=== PATIENT | male | born 1935 | race Caucasian/White ===

== ENCOUNTER 2024-02-16 16:18 | Inpatient (IN) | payer MEDICARE, SELFPAY ==
[2024-02-16] VITALS (11 sets, daily range): BP systolic 112–146; BP diastolic 50–96; PULSE 69–119; RESP 18–34; TEMP 37.2–37.7; O2SAT 93–96
--- NOTE | ~2024-02-16 | MR_ITS ---
EXAMINATION: MR brain/brain stem wo con DATE: 02/18/2024 14:22 INDICATION: Confusion. TECHNIQUE: Magnetic resonance imaging (MRI) of the brain and brainstem was performed without intraven ous contrast. COMPARISON: Head CT 02/16/2024 FINDINGS: There is diffuse brain volume loss. There are scattered areas of nonspecific increased T2-w eighted signal intensity in the cerebral white matter. There is no intracranial hemorrhage, acute inf arction, or abnormal intracranial mass lesion. The ventricles are normal in size. There are small gabriel ateral mastoid effusions. There are likely changes of ocular lens replacement surgeries. There is mil d mucosal thickening in the ethmoid sinuses. IMPRESSION: 1. Moderate nonspecific cerebral white matter disease, which likely represents chronic small vessel i schemic disease. Reviewed, dictated and finalized at location E. IMPRESSION: 1. Moderate nonspecific cerebral white matter disease, which likely represents chronic small vessel ischemic disease.
--- NOTE | ~2024-02-16 | CT_ITS ---
CT brain wo con Ordering provider: Dahlia Cee PA-C History: 88 years Male with . altered mental status . Comparison: None. Technique: CT of the head without contrast. Radiation reduction technique utilized. DLP is 756.67 mGy . FINDINGS: BRAIN PARENCHYMA AND CSF SPACES: Brain atrophy with deep white matter ischemic changes and ventricula r dilatation. No midline shift, mass effect or hemorrhage. The brain parenchyma and CSF spaces are o therwise normal. VISUALIZED PARANASAL SINUSES: Well aerated. MASTOIDS: Well aerated. BONES: The bones appear intact. SOFT TISSUES: Visualized nasopharynx is normal. Superficial soft tissues are normal. IMPRESSION: No acute intracranial findings. Reviewed, dictated and finalized at location A.
--- NOTE | ~2024-02-16 | XR_ITS ---
XR chest 2V Ordering provider: Olman Burger MD History: 88 years Male with . cough . Comparison: None. FINDINGS: MEDIASTINUM: The cardiac silhouette is not enlarged. LUNGS: No pneumothorax. Consolidation in the right lung base suggestive of pneumonia. Minimal opacifi cation and the left lung base medially. Effusions in the posterior costophrenic angle on the right si de. OTHER: No free air under the diaphragm. IMPRESSION: Bibasilar pneumonia more on the right side. Reviewed, dictated and finalized at location A.
--- NOTE | 2024-02-16 16:31 | ECG_ITS ---
Test Date: 2024-02-16 16:26:02 Measurements Intervals [place] Rate: 109 P: 49 MN: 162 QRS: 18 QRSD: 100 T: 72 QT: 292 QTc: 394 Interpretive Statements SINUS TACHYCARDIA LOW QRS VOLTAGE IN EXTREMITY LEADS [QRS DEFLECTION < 0.5 mV IN LIMB LEADS] NONSPECIFIC ST & T-WAVE ABNORMALITY ABNORMAL ECG No previous ECG available for comparison Electronically Signed On 02-17-2024 11:30:28 CDT by Hayden Cunningham M.D.
--- NOTE | 2024-02-16 16:37 | ED.AMS ---
HPI - Altered Mental Status General Chief Complaint: Altered Mental Status Stated Complaint: ams Time Seen by Provider: 02/16/24 16:25 History of Present Illness HPI narrative: Patient is an 88-year-old male who presents ER from home with reports of increased confusion. Patient is awake alert and follows commands but has a difficult time communicating. He does knows name. No reports of discomfort. He endorses frequent cough. Otherwise history is limited. Temperature is slightly elevated 99.9? F. Related Data Home Medications Medication Instructions Recorded Confirmed allopurinol 100 mg tablet 100 mg PO BID 12/13/20 12/17/23 amlodipine 5 mg tablet 5 mg PO DAILY 12/13/20 12/17/23 apixaban 5 mg tablet (Eliquis) 5 mg PO ONCE 12/13/20 12/17/23 ergocalciferol (vitamin D2) 1,250 1,250 mcg PO MONTHLY 12/13/20 12/17/23 mcg (50,000 unit) capsule famotidine 20 mg tablet 20 mg PO DAILY 12/13/20 12/17/23 finasteride 5 mg tablet 5 mg PO DAILY 12/13/20 12/17/23 ipratropium 0.5 mg-albuterol 3 mg 3 ml inhalation QID PRN 12/13/20 12/17/23 (2.5 mg base)/3 mL nebulization soln lisinopril 5 mg tablet 5 mg PO DAILY 12/13/20 12/17/23 simvastatin 20 mg tablet 20 mg PO DAILY 12/13/20 12/17/23 tamsulosin 0.4 mg capsule 0.4 mg PO DAILY 12/13/20 12/17/23 umeclidinium 62.5 mcg/actuation 1 inh inhalation DAILY 12/13/20 12/17/23 blister powder for inhalation (Incruse Ellipta) metoprolol tartrate 25 mg tablet 25 mg PO BID 03/19/23 12/17/23 oxybutynin chloride 5 mg tablet 10 mg PO DAILY 03/19/23 12/17/23 ferrous gluconate 324 mg (37.5 mg 324 mg PO DAILY 11/12/23 12/17/23 iron) tablet hydrocodone 5 mg-acetaminophen 325 1 tablet PO Q6H PRN 11/12/23 12/17/23 mg tablet Allergies Allergy/AdvReac Type Severity Reaction Status Date / Time No Known Allergies Allergy Verified 12/17/23 13:10 Review of Systems Review of Systems: ROS unobtainable: Yes unobtainable due to mental status PMFSH Past Medical History Medical History COPD (chronic obstructive pulmonary disease) Heart disease Surgical History Surgical History History of back surgery Family History Family History Father Hypertension Mother Hypertension Social History Social History (Updated 11/12/23 @ 13:37 by Belkys Morejon CMA) Smoking status: Never smoker Alcohol intake: never Substance use type: does not use Do You Feel Safe in your Home?: Yes Lack of Transportation: No Lack of Food: Never True Current Housing: I Have Housing Concerned About Future Housing: No Difficulty Paying Gas/Electric Bills: No Difficulty Paying for Meds: No Currently Unemployed: No Education: Grade School Difficulty w/ Childcare or Family Care: No Living arrangements: with family Occupation/Education: retired Exam Narrative: GENERAL: chronically ill-appearing, well-nourished, and in no acute distress. HEAD: Normocephalic, atraumatic. ENT: Mucous membranes moist. NECK: Supple. CHEST: Clear to auscultation. No respiratory distress. HEART: Tachycardic. Normal peripheral pulses. ABDOMEN: Soft, nontender, nondistended. EXTREMITIES: Normal range of motion. No edema. SKIN: Warm, dry, no rash. NEURO: Alert and oriented x1. PSYCH: Normal mood and affect. Course Course Emergency Course: patient's family at bedside. They report he has not been eating and drinking. He will be admitted to the hospitalist service. IV antibiotics ordered. Vital Signs Vital signs: Vital Signs Temperature 99.9 F H 02/16/24 16:27 Pulse Rate 110 H 02/16/24 16:27 Respiratory Rate 18 02/16/24 16:27 Blood Pressure 138/70 02/16/24 16:27 Pulse Oximetry 96 02/16/24 16:27 Temperature 99.9 F H 02/16/24 16:27 Pulse Rate 110 H 02/16/24 17:10 Respiratory Rate 27 H
[2024-02-16 16:52] LABS: Basophils Absolute Auto 0.1 K/mm3 (0.0-0.1); Basophils Percent Auto 0.3 % (0.2-1.2); Eosinophils Absolute Auto 0.1 K/mm3 (0-0.3); Eosinophils Percent Auto 0.6 % (0-4.4); Hematocrit 42.8 % (42.0-52.0); Hemoglobin 14.1 g/dL (14.0-18.0); Immature Granulocyte Absolute 0.06 K/mm3 (0.00-0.031); Immature Granulocyte Percent A 0.4 % (0-0.5); Lymphocytes Absolute Auto 1.96 K/mm3 (0.9-3.2); Mean Corpuscular HGB Conc 32.9 g/dl (32-36); Mean Corpuscular Hemoglobin 30.4 pg (26-34); Mean Corpuscular Volume 92.2 fl (80-100); Mean Platelet Volume 9.1 fl (7.4-10.4); Monocytes Absolute Auto 0.9 K/mm3 (0.1-0.6); Monocytes Percent Auto 5.9 % (2.6-8.5); Neutrophils Absolute Auto 12.1 K/mm3 (1.3-6.7); Neutrophils Percent Auto 79.8 % (45.5-73.1); Platelet Count Result 211 k/mm3 (150-375); Red Blood Count 4.64 M/mm3 (4.6-6.20); Red Cell Distribution Width 14.9 % (11.5-14.5); White Blood Count 15.1 K/mm3 (4.5-10.0)
[2024-02-16 17:04] LABS: Alanine Aminotransferase 12 U/L (6-50); Albumin Level 4.4 g/dL (3.5-5.1); Alkaline Phosphatase 90 U/L (38-126); Anion Gap 11 mmol/L (4-12); Aspartate Amino Transferase 19 U/L (17-59); Bilirubin,Total 1.3 mg/dL (0.2-1.3); Blood Urea Nitrogen 55 mg/dL (9-20); Calcium 10.8 mg/dL (8.4-10.2); Carbon Dioxide 22 mmol/L (22-30); Chloride 107 mmol/L (98-107); Estimated CRCL calculation 15 ml/min; Estimated Glomerular Filt Rate 21; Glucose 171 mg/dL (65-110); Potassium 5.6 mmol/L (3.4-5.0); Sodium 140 mmol/L (137-145)
[2024-02-16] MEDS: SODIUM CHLORIDE 0.9% IV 1,000 ML 999 ML IV CONT ×2 (17:10→18:53)
[2024-02-16 17:15] LABS: Troponin I 0.014 ng/mL (0.000-0.034)
[2024-02-16 17:27] LABS: Appearance Urine Clear (Clear); Bacteria Urine None Seen /hpf; Bilirubin Urine Negative (Negative); Blood Urine 1+ (Negative); Color Urine Yellow (Yellow); Glucose Urine UA Negative (Negative); Ketones Urine Negative (Negative); Leukocyte Esterase Ur Negative LEU/UL (Negative); Need Manual Microscopic Reviewed; Nitrate Urine Negative (Negative); Non Pathogenic Casts 0-2; Protein Urine 1+ mg/dL (Negative); Specific Grav Ur 1.017 (1.001-1.035); Squamous Epithelial Cell Urine None Seen /hpf (Few); Urobilinogen Urine 0.2 mg/dL (<2.0); WBC Urine 0-5 /hpf (0-3)
[2024-02-16 17:28] LABS: Add Urine Microscopic? YES
[2024-02-16 17:29] LABS: INR 1.4
[2024-02-16 17:30] LABS: Partial Thromboplastin Time 53.4 Seconds (22.3-36.8)
[2024-02-16 18:17] LABS: Influenza A QL RT-PCR Negative (Negative); Influenza B QL RT-PCR Negative (Negative); RSV RNA, RT-PCR Negative (Negative); SARS-CoV-2 RNA PCR Negative (Negative)
--- NOTE | 2024-02-16 19:20 | PM.IMHP ---
H&P: HPI History of Present Illness Date/Time: 02/16/24 20:15 Chief Complaint: Altered mental status. Narrative: This is an 88-year-old male with hypertension, hyperlipidemia, benign prostatic hyperplasia, gastroesophageal reflux disease, anemia, chronic obstructive pulmonary disease, obstructive sleep apnea, and chronic anticoagulation who presented to the emergency department via EMS from home for evaluation of altered mental status. He provides the majority the following history. At baseline the patient is typically alert and able to hold conversations. Over the past 24 hours he has become increasingly confused and agitated. On arrival to triage he complained of ?pain all over? of which he could not qualify. Son indicates that he had spinal surgery about 10 years ago and he has become progressively more debilitated the point where he no longer walks. He indicates that the patient has poor quality of life and tells his family that he wishes to . He has been refusing meals and will only drink chocolate milk. They have not noticed that he has issues swallowing and have not witnessed any episodes of dysphagia. There are no reports of fever, cough, vomiting, or diarrhea. In the ED: Temperature was 99.9? F on arrival. He has been tachycardic and tachypneic. Blood pressures are stable in the 140s systolic. Labs were significant for a WBC count of 50.1, hemoglobin 14.1, INR 1.4, potassium 5.6, BUN 55, creatinine 2.80, glucose 171, calcium 10.8. He tested negative for influenza, RSV, and COVID. Chest x-ray showed bibasilar pneumonia, more on the right side. He was given a 2 L normal saline bolus, 1 g ceftriaxone, and 500 mg azithromycin and he is being admitted in this setting for further treatment and evaluation. Review of Systems Review of Systems: Unable to obtain accurately given his confusion. [facility] Past Medical History Medical History Benign prostatic hyperplasia Chronic anticoagulation Chronic obstructive pulmonary disease Gastroesophageal reflux disease Gout Heart disease Hypertension Iron deficiency anemia Surgical History Surgical History History of back surgery Family History Family History Father Hypertension Mother Hypertension Social History Social History (Updated 02/16/24 @ 23:08 by Dahlia Cee PA-C) Social History: Surrogate medical decision maker: Myah (spouse) and Fidencio (son) Artis. Code status: Do not resuscitate. Smoking packs per day: 2 Smoking cigarettes per day: 40.0 Years smoked: 40 Smoking pack-years: 80.00 Smoking status: Former smoker Tobacco type: cigarettes Alcohol intake: never Substance use: never Substance use type: does not use Do You Feel Safe in your Home?: Yes Lack of Transportation: No Lack of Food: Never True Current Housing: I Have Housing Concerned About Future Housing: No Difficulty Paying Gas/Electric Bills: No Difficulty Paying for Meds: No Currently Unemployed: No Education: Grade School Difficulty w/ Childcare or Family Care: No Living arrangements: with family Occupation/Education: retired Spiritual care concerns: No Meds Home Medications and Allergies Home Medications Medication Instructions Recorded Confirmed Type allopurinol 100 mg tablet 100 mg PO BID 12/13/20 12/17/23 History amlodipine 5 mg tablet 5 mg PO DAILY 12/13/20 12/17/23 History apixaban 5 mg tablet (Eliquis) 5 mg PO ONCE 12/13/20 12/17/23 History ergocalciferol (vitamin D2) 1,250 1,250 mcg PO MONTHLY 12/13/20 12/17/23 History mcg (50,000 unit) capsule famotidine 20 mg tablet 20 mg PO DAILY 12/13/20 12/17/23 History finasteride 5 mg tablet 5 mg PO DAILY 12/13/20 12/17/23 History ipratropium 0.5 mg-albuterol 3 mg 3 ml inhalation QID PRN 12/13/20 12/17/23 His
--- NOTE | 2024-02-16 20:05 | ADMGEN ---
This patient, Austin Wisdom, was admitted to Medical Room 348-01. Patient/family oriented to hospital policies and general routines including ID bracelet, bed and alarms, visiting hours, pain management, procedures, bathroom and other care routines, personal items, smoking policy, room service/diet, and visiting hours. Information on how to activate the Rapid Response Team has been discussed. Patient/Family are encouraged to report perceived risks to care and to ask questions if they do not understand what they are told or what they should do.
[2024-02-16 20:14] LABS: Ammonia < 9 umol/L (9-30); Anion Gap 9 mmol/L (4-12); Blood Urea Nitrogen 47 mg/dL (9-20); Calcium 9.6 mg/dL (8.4-10.2); Carbon Dioxide 19 mmol/L (22-30); Chloride 114 mmol/L (98-107); Estimated CRCL calculation 17 ml/min; Estimated Glomerular Filt Rate 23; Glucose 151 mg/dL (65-110); Potassium 4.9 mmol/L (3.4-5.0); Sodium 142 mmol/L (137-145)
[2024-02-16 20:17] LABS: Hemoglobin A1C 5.4 % (<5.7)
[2024-02-16 20:26] LABS: Troponin I 0.023 ng/mL (0.000-0.034)
[2024-02-16 20:46] LABS: Thyroid Stimulating Hormone Reflex 0.364 uIU/mL (0.465-4.68)
[2024-02-16] MEDS: SODIUM CHLORIDE 0.9% IV 1,000 ML 75 ML IV CONT (21:31)
[2024-02-16] MEDS: AZITHROMYCIN 500 MG/NS 250 ML 500 MG/250 ML BAG 250 MG IVPB (21:32)
[2024-02-16 21:37] LABS: Free T4 Free Thyroxine Reflex 1.28 ng/dL (0.78-2.19)
[2024-02-16 23:11] LABS: Total Triiodothyronine (T3) 1.15 NG/ML (0.97-1.69)
[2024-02-16 23:38] LABS: Reflex Lactic Acid Yes or No Add Lactic
[2024-02-17] VITALS (14 sets, daily range): BP systolic 117–130; BP diastolic 33–45; PULSE 59–99; RESP 16–18; TEMP 36.2–37.1; O2SAT 91–96; BMI 20.7
[2024-02-17 00:16] LABS: Lactic Acid 0.8 mmol/L (0.7-2.0)
[2024-02-17] MEDS: IPRATROPIUM 0.5 MG/ALBUTEROL SULFATE 2.5 MG AMPUL.NEB 3 ML INHALATION ×4 (02:12→20:31)
[2024-02-17] MEDS: LACTATED RINGERS 1,000 ML 75 ML IV CONT ×2 (03:35→17:01)
[2024-02-17 07:38] LABS: Basophils Percent Auto 0.3 % (0.2-1.2); Eosinophils Absolute Auto 0.2 K/mm3 (0-0.3); Eosinophils Percent Auto 1.8 % (0-4.4); Hematocrit 33.7 % (42.0-52.0); Immature Granulocyte Absolute 0.05 K/mm3 (0.00-0.031); Immature Granulocyte Percent A 0.5 % (0-0.5); Lymphocytes Absolute Auto 1.58 K/mm3 (0.9-3.2); Mean Corpuscular HGB Conc 32.6 g/dl (32-36); Mean Corpuscular Hemoglobin 30.2 pg (26-34); Mean Corpuscular Volume 92.6 fl (80-100); Mean Platelet Volume 9.2 fl (7.4-10.4); Monocytes Absolute Auto 0.8 K/mm3 (0.1-0.6); Monocytes Percent Auto 8.1 % (2.6-8.5); Neutrophils Absolute Auto 6.7 K/mm3 (1.3-6.7); Neutrophils Percent Auto 72.3 % (45.5-73.1); Platelet Count Result 159 k/mm3 (150-375); Red Blood Count 3.64 M/mm3 (4.6-6.20); Red Cell Distribution Width 14.8 % (11.5-14.5); White Blood Count 9.3 K/mm3 (4.5-10.0)
[2024-02-17 07:51] LABS: Anion Gap 6 mmol/L (4-12); Blood Urea Nitrogen 43 mg/dL (9-20); Calcium 9.4 mg/dL (8.4-10.2); Carbon Dioxide 20 mmol/L (22-30); Chloride 115 mmol/L (98-107); Estimated CRCL calculation 17 ml/min; Estimated Glomerular Filt Rate 27; Glucose 101 mg/dL (65-110); Magnesium 1.9 mg/dL (1.6-2.3); Potassium 4.2 mmol/L (3.4-5.0); Sodium 141 mmol/L (137-145)
[2024-02-17 08:38] LABS: Amphetamine Screen Urine Negative (Negative); Barbiturate Screen Urine Negative (Negative); Benzodiazepines Screen Urine Negative (Negative); Cannabinoid Screen Urine Negative (Negative); Cocaine Screen Urine Negative (Negative); Methadone Screen Urine Negative (Negative); Opiate Screen Urine Negative (Negative); Phencyclidine Screen Urine Negative (Negative)
--- NOTE | 2024-02-17 10:43 | PCSTNOTE ---
Please refer to the Bedside Swallow Evaluation in the EMR. Please note, silent aspiration cannot be ruled out at bedside.
--- NOTE | 2024-02-17 12:31 | PM.IMPN ---
Progress Note: A&P Assessment and Plan (1) Sepsis: Code(s): A41.9 - Sepsis, unspecified organism Status: Acute (2) Pneumonia: Code(s): J18.9 - Pneumonia, unspecified organism Status: Acute (3) Acute kidney injury: Code(s): N17.9 - Acute kidney failure, unspecified Status: Acute (4) Altered mental status: Code(s): R41.82 - Altered mental status, unspecified Status: Acute (5) Hyperkalemia: Code(s): E87.5 - Hyperkalemia Status: Acute (6) Chronic anticoagulation: Code(s): Z79.01 - ad terminal makeup operator (current) use of anticoagulants Status: Acute (7) Hypertension: Code(s): I10 - Essential (primary) hypertension Status: Acute (8) Chronic obstructive pulmonary disease: Code(s): J44.9 - Chronic obstructive pulmonary disease, unspecified Status: Acute (9) Benign prostatic hyperplasia: Code(s): N40.0 - Benign prostatic hyperplasia without lower urinary tract symptoms Status: Acute (10) Gastroesophageal reflux disease: Code(s): K21.9 - Gastro-esophageal reflux disease without esophagitis Status: Acute (11) Iron deficiency anemia: Code(s): D50.9 - Iron deficiency anemia, unspecified Status: Acute Plan This is an 88-year-old male with hypertension, hyperlipidemia, benign prostatic hyperplasia, gastroesophageal reflux disease, anemia, chronic obstructive pulmonary disease, obstructive sleep apnea, and chronic anticoagulation who presented to the emergency department via EMS from home for evaluation of altered mental status. At baseline the patient is typically alert and able to hold conversations. Over the past 24 hours he has become increasingly confused and agitated. On arrival to triage he complained of ?pain all over? of which he could not qualify. Son indicates that he had spinal surgery about 10 years ago and he has become progressively more debilitated the point where he no longer walks. He indicates that the patient has poor quality of life and tells his family that he wishes to . He has been refusing meals and will only drink chocolate milk. They have not noticed that he has issues swallowing and have not witnessed any episodes of dysphagia. There are no reports of fever, cough, vomiting, or diarrhea. In the ED: Temperature was 99.9? F on arrival. He has been tachycardic and tachypneic. Blood pressures are stable in the 140s systolic. Labs were significant for a WBC count of 15k, hemoglobin 14.1, INR 1.4, potassium 5.6, BUN 55, creatinine 2.80, glucose 171, calcium 10.8. He tested negative for influenza, RSV, and COVID. Chest x-ray showed bibasilar pneumonia, more on the right side. He was given a 2 L normal saline bolus, 1 g ceftriaxone, and 500 mg azithromycin and he is being admitted in this setting for further treatment and evaluation. Sepsis with low-grade fever tachycardia tachypnea leukocytosis and elevated lactic acid level source pneumonia. On ceftriaxone azithromycin. Follow cultures. Urine antigens. Acute kidney injury creatinine 2.8 continue to improve hold lisinopril check CK level Hyperkalemia resolved Long-term anticoagulant use on apixaban unclear etiology Altered mental status improved TSH mildly low with normal free T3 and T4. Ammonia less than 9 LFTs normal lactic acid has normalized. CT head is negative. Will get MRI brain DVT prophylaxis on apixaban Will restart with lowered to 2.5 b.i.d. due to renal function He is on multiple different medications at home at the supposed to but has not been taking it for a while. Subjective Date/time seen: 02/17/24 12:31 Interval history: No overnight events. Looks better feels better more alert and conversant today, still has some speech problem Review of Systems Review of Systems: All systems reviewed & are unremarkable except as noted in HPI and below Exam Narrative: General: Chronically ill-appearing male supine in bed, not i
[2024-02-17 15:53] LABS: Creatine Kinase 87 U/L (55-170)
[2024-02-17] MEDS: allopurinoL 100 MG TABLET PO (17:02)
[2024-02-17] MEDS: AZITHROMYCIN 500 MG/NS 250 ML 500 MG/250 ML BAG 250 MG IVPB (17:02)
[2024-02-17] MEDS: METOPROLOL TARTRATE 25 MG TABLET PO (20:46)
[2024-02-17] MEDS: guaiFENesin 12 HR 600 MG TABCR PO (20:46)
[2024-02-17] MEDS: APIXABAN 2.5 MG TABLET PO (20:46)
[2024-02-18] VITALS (22 sets, daily range): BP systolic 108–131; BP diastolic 42–58; PULSE 70–151; RESP 16–18; TEMP 36.4–37.2; O2SAT 90–94
[2024-02-18] MEDS: IPRATROPIUM 0.5 MG/ALBUTEROL SULFATE 2.5 MG AMPUL.NEB 3 ML INHALATION ×4 (01:32→19:31)
[2024-02-18 06:03] LABS: Basophils Percent Auto 0.2 % (0.2-1.2); Eosinophils Absolute Auto 0.2 K/mm3 (0-0.3); Eosinophils Percent Auto 1.9 % (0-4.4); Hematocrit 31.5 % (42.0-52.0); Hemoglobin 10.2 g/dL (14.0-18.0); Immature Granulocyte Absolute 0.04 K/mm3 (0.00-0.031); Immature Granulocyte Percent A 0.5 % (0-0.5); Lymphocytes Absolute Auto 1.28 K/mm3 (0.9-3.2); Lymphocytes Percent Auto 15.8 % (18.3-44.2); Mean Corpuscular HGB Conc 32.4 g/dl (32-36); Mean Corpuscular Hemoglobin 30.5 pg (26-34); Mean Corpuscular Volume 94.3 fl (80-100); Mean Platelet Volume 9.3 fl (7.4-10.4); Monocytes Absolute Auto 0.7 K/mm3 (0.1-0.6); Neutrophils Percent Auto 73.6 % (45.5-73.1); Platelet Count Result 136 k/mm3 (150-375); Red Blood Count 3.34 M/mm3 (4.6-6.20); Red Cell Distribution Width 14.7 % (11.5-14.5); White Blood Count 8.1 K/mm3 (4.5-10.0)
[2024-02-18 06:19] LABS: Alanine Aminotransferase 9 U/L (6-50); Alkaline Phosphatase 66 U/L (38-126); Anion Gap 2 mmol/L (4-12); Aspartate Amino Transferase 19 U/L (17-59); Bilirubin,Total 0.6 mg/dL (0.2-1.3); Blood Urea Nitrogen 33 mg/dL (9-20); Calcium 9.2 mg/dL (8.4-10.2); Carbon Dioxide 24 mmol/L (22-30); Chloride 112 mmol/L (98-107); Estimated CRCL calculation 19 ml/min; Estimated Glomerular Filt Rate 32; Glucose 95 mg/dL (65-110); Magnesium 1.7 mg/dL (1.6-2.3); Potassium 4.3 mmol/L (3.4-5.0); Sodium 138 mmol/L (137-145)
--- NOTE | 2024-02-18 08:42 | ECG_ITS ---
Test Date: 2024-02-18 09:00:30 Measurements Intervals [place] Rate: 151 P: 0 MS: 0 QRS: 28 QRSD: 94 T: 0 QT: 247 QTc: 392 Interpretive Statements ATRIAL FIBRILLATION WITH RAPID VENTRICULAR RESPONSE MARKED ST DEPRESSION, CONSIDER SUBENDOCARDIAL INJURY [0.2+ mV ST DEPRESSION] Compared to ECG 02/16/2024 16:26:02 ATRIAL FIBRILLATION WITH RVR NOW PRESENT Electronically Signed On 02-18-2024 12:11:27 CDT by Dez Oneal M.D.
[2024-02-18] MEDS: oxyBUTYnin CHLORIDE 5 MG TABLET 10 MG PO (08:51)
[2024-02-18] MEDS: amLODIPine BESYLATE 5 MG TABLET PO (08:51)
[2024-02-18] MEDS: METOPROLOL TARTRATE INJ 5 MG/5 ML VIAL IV PUSH (08:52)
[2024-02-18] MEDS: APIXABAN 2.5 MG TABLET PO ×2 (08:53→20:36)
[2024-02-18] MEDS: FAMOTIDINE 20 MG TABLET PO (08:53)
[2024-02-18] MEDS: FINASTERIDE 5 MG TABLET PO (08:53)
[2024-02-18] MEDS: allopurinoL 100 MG TABLET PO (08:53)
[2024-02-18] MEDS: guaiFENesin 12 HR 600 MG TABCR PO ×2 (08:53→20:35)
[2024-02-18] MEDS: SIMVASTATIN 20 MG TABLET PO (08:53)
[2024-02-18] MEDS: LACTATED RINGERS 1,000 ML 75 ML IV CONT (09:04)
[2024-02-18] MEDS: FERROUS GLUCONATE 324 MG TABLET PO (09:11)
[2024-02-18] MEDS: MAGNESIUM SULF 1 GM/D5W 100 ML 1 GM/100 ML BAG IVPB (09:37)
[2024-02-18] MEDS: METOPROLOL TARTRATE 25 MG TABLET PO ×2 (10:06→20:36)
--- NOTE | 2024-02-18 12:49 | P.CDI_ITS ---
CDI Query Clarification Request BMI 21.6 Nutritional Diagnostic Statement: Severe protein calorie malnutrition related to chronic loss of appetite as evidenced by intakes <50% needs >1 month; severe muscle wasting (temporalis, clavicles, shoulders, calf muscles) and severe fat loss (buccal fat pads, ribs) Please refer to the comprehensive nutrition assessment for further information. If you agree with the diagnosis of protein calorie malnutrition, please add to the problem list including the severity: * Mild * Moderate * Severe * Other/Unknown <LANA Luz - Last Filed: 02/18/24 12:52> Provider Comments severe protein calorie malnutrition <Todd Steele MD - Last Filed: 02/28/24 07:36>
--- NOTE | 2024-02-18 13:43 | PM.IMPN ---
Progress Note: A&P Assessment and Plan (1) Sepsis: Code(s): A41.9 - Sepsis, unspecified organism Status: Acute (2) Pneumonia: Code(s): J18.9 - Pneumonia, unspecified organism Status: Acute (3) Acute kidney injury: Code(s): N17.9 - Acute kidney failure, unspecified Status: Acute (4) Altered mental status: Code(s): R41.82 - Altered mental status, unspecified Status: Acute (5) Hyperkalemia: Code(s): E87.5 - Hyperkalemia Status: Acute (6) Chronic anticoagulation: Code(s): Z79.01 - half-way (current) use of anticoagulants Status: Acute (7) Hypertension: Code(s): I10 - Essential (primary) hypertension Status: Acute (8) Chronic obstructive pulmonary disease: Code(s): J44.9 - Chronic obstructive pulmonary disease, unspecified Status: Acute (9) Benign prostatic hyperplasia: Code(s): N40.0 - Benign prostatic hyperplasia without lower urinary tract symptoms Status: Acute (10) Gastroesophageal reflux disease: Code(s): K21.9 - Gastro-esophageal reflux disease without esophagitis Status: Acute (11) Iron deficiency anemia: Code(s): D50.9 - Iron deficiency anemia, unspecified Status: Acute Plan This is an 88-year-old male with hypertension, hyperlipidemia, benign prostatic hyperplasia, gastroesophageal reflux disease, anemia, chronic obstructive pulmonary disease, obstructive sleep apnea, and chronic anticoagulation who presented to the emergency department via EMS from home for evaluation of altered mental status. At baseline the patient is typically alert and able to hold conversations. Over the past 24 hours he has become increasingly confused and agitated. On arrival to triage he complained of ?pain all over? of which he could not qualify. Son indicates that he had spinal surgery about 10 years ago and he has become progressively more debilitated the point where he no longer walks. He indicates that the patient has poor quality of life and tells his family that he wishes to . He has been refusing meals and will only drink chocolate milk. They have not noticed that he has issues swallowing and have not witnessed any episodes of dysphagia. There are no reports of fever, cough, vomiting, or diarrhea. In the ED: Temperature was 99.9? F on arrival. He has been tachycardic and tachypneic. Blood pressures are stable in the 140s systolic. Labs were significant for a WBC count of 15k, hemoglobin 14.1, INR 1.4, potassium 5.6, BUN 55, creatinine 2.80, glucose 171, calcium 10.8. He tested negative for influenza, RSV, and COVID. Chest x-ray showed bibasilar pneumonia, more on the right side. He was given a 2 L normal saline bolus, 1 g ceftriaxone, and 500 mg azithromycin and he is being admitted in this setting for further treatment and evaluation. Sepsis with low-grade fever tachycardia tachypnea leukocytosis and elevated lactic acid level source pneumonia. On ceftriaxone azithromycin. Follow cultures. Urine antigens. Will switch antibiotics to oral Acute kidney injury creatinine 2.8 continue to improve hold lisinopril CK level normal. Will stop IV fluid Hyperkalemia resolved Long-term anticoagulant use on apixaban unclear etiology could be for AFib. AFib with RVR this a.m. received IV metoprolol resume metoprolol 25 b.i.d. Altered mental status improved TSH mildly low with normal free T3 and T4. Ammonia less than 9 LFTs normal lactic acid has normalized. CT head is negative. Will get MRI brain DVT prophylaxis on apixaban Will restart with lowered to 2.5 b.i.d. due to renal function He is on multiple different medications at home at the supposed to but has not been taking it for a while. Disposition: Patient and family opting for hospice enrollment and [facility]. Care coordination on board. Subjective Date/time seen: 02/18/24 13:43 Interval history: patient went into AFib with RVR this
[2024-02-19] VITALS (14 sets, daily range): BP systolic 117–153; BP diastolic 47–55; PULSE 64–96; RESP 16–18; TEMP 36.6–37.1; O2SAT 93–96
[2024-02-19] MEDS: IPRATROPIUM 0.5 MG/ALBUTEROL SULFATE 2.5 MG AMPUL.NEB 3 ML INHALATION ×2 (01:08→07:27)
[2024-02-19] MEDS: FINASTERIDE 5 MG TABLET PO (08:49)
[2024-02-19] MEDS: oxyBUTYnin CHLORIDE 5 MG TABLET 10 MG PO (08:49)
[2024-02-19] MEDS: FERROUS GLUCONATE 324 MG TABLET PO (08:49)
[2024-02-19] MEDS: AZITHROMYCIN 250 MG TABLET 500 MG PO (08:49)
[2024-02-19] MEDS: allopurinoL 100 MG TABLET PO ×2 (08:49→17:22)
[2024-02-19] MEDS: METOPROLOL TARTRATE 25 MG TABLET PO ×2 (08:51→20:15)
[2024-02-19] MEDS: guaiFENesin 12 HR 600 MG TABCR PO ×2 (08:51→20:16)
[2024-02-19] MEDS: FAMOTIDINE 20 MG TABLET PO (08:51)
[2024-02-19] MEDS: amLODIPine BESYLATE 5 MG TABLET PO (08:51)
[2024-02-19] MEDS: SIMVASTATIN 20 MG TABLET PO (08:52)
[2024-02-19] MEDS: APIXABAN 2.5 MG TABLET PO ×2 (08:52→20:16)
--- NOTE | 2024-02-19 12:20 | PM.IMPN ---
Progress Note: A&P Assessment and Plan (1) Sepsis: Code(s): A41.9 - Sepsis, unspecified organism Status: Acute Assessment and Plan: Patient here because he was increasingly confused and agitated. Found to have sepsis with low-grade fever, tachycardia, tachypnea leukocytosis and elevated lactic acid level CXR showing R>L bibasilar PNA. COVID, RSV and Influenza PCR negative. Started on Rocephin and Azithromycin. WBC normal now. Lactic acid normal. Fever resolved BCx NGTD Continue abx. Changed to oral route. Remains on room air (2) Pneumonia: Code(s): J18.9 - Pneumonia, unspecified organism Status: Acute Assessment and Plan: As above (3) Acute kidney injury: Code(s): N17.9 - Acute kidney failure, unspecified Status: Acute Assessment and Plan: Patient with acute kidney injury with creatinine 2.8 on admisison. [place] related to PNA. Lisinopril held. Treated with IV fluids. Cr has trended down. Monitor intermittently now. (4) Altered mental status: Code(s): R41.82 - Altered mental status, unspecified Status: Acute Assessment and Plan: Alert but confused. CT brain showing no acute process. Brain MRI showing moderate nonspecific cerebral WM disease but no acute process. Ammonia, B12 normal. TSH low at 0.36 but FT4 1.28. Monitor for now (5) Hyperkalemia: Code(s): E87.5 - Hyperkalemia Status: Acute Assessment and Plan: Potassium 5.6 on admission. [place] related to the DYLAN Lisinopril held Potassium normalized. (6) Hypertension: Code(s): I10 - Essential (primary) hypertension Status: Acute Assessment and Plan: Patient's blood pressure was reviewed on 02/18 Blood pressure remains well controlled. Will continue current medications. (7) Chronic obstructive pulmonary disease: Code(s): J44.9 - Chronic obstructive pulmonary disease, unspecified Status: Acute Assessment and Plan: Stable. No wheezing (8) Iron deficiency anemia: Code(s): D50.9 - Iron deficiency anemia, unspecified Status: Acute Assessment and Plan: hgb 14 on admission but felt related to hemoconcentration. Hgb dropped to 10-11 range with IV fluids and stable Contineu iron supplement (9) Atrial fibrillation: Code(s): I48.91 - Unspecified atrial fibrillation Status: Acute Assessment and Plan: Patient with pAFib. [place] to be chronic. Rate okay. Continue Eliquis. Continue metoprolol Okay to stop tele Plan DVT prophylaxis - Eliquis Code status - DNR Disposition: Patient and family opting for hospice enrollment and [facility] placement. Care coordination arranging for patietn to be discharged tomorrow on hospice Subjective Date/time seen: 02/19/24 12:20 Interval history: 88yo male with HTN, HLD, BPH, COPD and KARSTEN here for altered mental status. He feels 'cold' all morning. no CP, SOB, nausea or vomiting. Slight cough. Had episode of AFib/RVR yesterday. He is alert but confused. Exam Narrative: AF 97.8 153/48 90 18 94% ra Gen - NARD Chest - R>L bibasilar crackles CV - RRR S1/S2; tele showing NSR, AFib/RVR yesterday Abd - Soft, NT/ND, Positive BS - Lo secured draining clear yellow urine Ext - No pedal edema Neuro - Alert but confused (location only). Psych - Nml mood and affect Skin - Warm and dry Objective Data Vital Signs Vital Signs: Vital Signs - 24 hr 02/18/24 13:17 02/18/24 13:26 02/18/24 16:56 Temperature 97.6 F Pulse Rate 107 H 99 75 Respiratory Rate 18 18 16 Blood Pressure 123/42 L Pulse Oximetry 94 Oxygen Delivery Fraction of Inspired Oxygen 02/18/24 16:04 02/18/24 19:31 02/18/24 19:40 Temperature Pulse Rate 77 95 97 Respiratory Rate 18 18 Blood Pressure Pulse Oximetry Oxygen Delivery Fraction of Inspired Oxygen 02/18/24 20:36 02/18/24 22:00
[2024-02-19] MEDS: CEFDINIR 300 MG CAPSULE PO (17:22)
[2024-02-20 04:07] VITALS: BP 153/83; PULSE 73; RESP 18; TEMP 37.1; O2SAT 95
[2024-02-20 08:39] VITALS: PULSE 72
[2024-02-20] MEDS: FINASTERIDE 5 MG TABLET PO (08:39)
[2024-02-20] MEDS: oxyBUTYnin CHLORIDE 5 MG TABLET 10 MG PO (08:39)
[2024-02-20] MEDS: amLODIPine BESYLATE 5 MG TABLET PO (08:39)
[2024-02-20] MEDS: METOPROLOL TARTRATE 25 MG TABLET PO (08:39)
[2024-02-20] MEDS: FAMOTIDINE 20 MG TABLET PO (08:39)
[2024-02-20] MEDS: APIXABAN 2.5 MG TABLET PO (08:39)
[2024-02-20] MEDS: SIMVASTATIN 20 MG TABLET PO (08:39)
[2024-02-20] MEDS: allopurinoL 100 MG TABLET PO (08:39)
[2024-02-20] MEDS: AZITHROMYCIN 250 MG TABLET 500 MG PO (08:39)
[2024-02-20] MEDS: FERROUS GLUCONATE 324 MG TABLET PO (08:40)
[2024-02-20] MEDS: guaiFENesin 12 HR 600 MG TABCR PO (08:40)
--- NOTE | 2024-02-20 13:40 | PM.DS ---
DS: Admitting Diagnosis Discharge Date 02/20/24 Admitting Diagnosis Altered mental status DS: Discharge Diagnosis Discharge Diagnosis (1) Sepsis: Code(s): A41.9 - Sepsis, unspecified organism Status: Acute (2) Pneumonia: Code(s): J18.9 - Pneumonia, unspecified organism Status: Acute (3) Acute kidney injury: Code(s): N17.9 - Acute kidney failure, unspecified Status: Acute (4) Altered mental status: Code(s): R41.82 - Altered mental status, unspecified Status: Acute (5) Hyperkalemia: Code(s): E87.5 - Hyperkalemia Status: Acute (6) Hypertension: Code(s): I10 - Essential (primary) hypertension Status: Acute (7) Chronic obstructive pulmonary disease: Code(s): J44.9 - Chronic obstructive pulmonary disease, unspecified Status: Acute (8) Iron deficiency anemia: Code(s): D50.9 - Iron deficiency anemia, unspecified Status: Acute (9) Atrial fibrillation: Code(s): I48.91 - Unspecified atrial fibrillation Status: Acute DS: Summary Hospital Course Reason for hospitalization: 88yo male with HTN, HLD, BPH, COPD and KARSTEN here for altered mental status. Please see H&P for details Hospital Course: Patient here because he was increasingly confused and agitated. Found to have sepsis with low-grade fever, tachycardia, tachypnea, leukocytosis and elevated lactic acid level. CXR showing R>L bibasilar PNA felt to be the source of the sepsis. COVID, RSV and Influenza PCR negative. He was started on Rocephin and Azithromycin. WBC normal now. Lactic acid normal. Fever resolved BCx NGTD. Patient with acute kidney injury with creatinine 2.8 on admission. [place] related to sepsis from PNA. Lisinopril held. Treated with IV fluids. Cr has trended down. Patient is alert but confused. CT brain showing no acute process. Brain MRI showing moderate nonspecific cerebral WM disease but no acute process. Ammonia, B12 normal. TSH low at 0.36 but FT4 1.28. Mental status improved. Family opting for hospice enrollment and [facility] placement. Care coordination arranged placement and patient was discharged to [facility] on hospice. Status at Discharge Cognitive/behavioral status at discharge: stable Time Spent with Patient Time attestation: Total time spent providing and/or coordinating discharge services:35 minutes Time spent: Greater than 30 minutes Exam Narrative: AF 98.7 153/83 72 18 95% ra Gen - NARD Chest - crackles appreciated in the flanks. clear anteriorly CV - RRR S1/S2 Abd - Soft, NT/ND, Positive BS - Lo secured draining clear yellow urine Ext - No pedal edema Neuro - Alert but confused Psych - Nml mood and affect Skin - Warm and dry DS: Data Data Completed and Pending Labs on day of discharge: Preliminary micro results at discharge 02/16/24 18:47 Blood Culture - Preliminary Blood 02/16/24 18:44 Blood Culture - Preliminary Blood Discharge Plan Discharge Attending physician on discharge: Giovani Pike Discharging Clinician: Giovani Pike Anticipated Discharge Date/Time: 02/20/24 13:47 Patient Disposition: Hospice - Medical Facility Activity: as tolerated Diet: as tolerated Discharge Instructions: Hospice to follow Routine Lo care Follow-up with the provider at the facility. Thank you for using [facility] for your health care needs. Stand Alone Forms: General Discharge Information Follow-up/Referrals: See,MD Hiren [Primary Care Provider] - Other Discharge Medications: New cefdinir 300 mg Capsule 300 mg PO Q24H Qty: 3 0RF Continued ferrous gluconate 324 mg (37.5 mg iron) tablet 324 mg PO DAILY amlodipine 5 mg tablet 5 mg PO DAILY ergocalciferol (vitamin D2) 1,250 mcg (50,000 unit) capsule 1,250 mcg PO WEEKLY allopurinol 100 mg tablet 100 mg PO BID simvastatin 20 mg tabl
[2024-02-20 14:00] VITALS: BP 124/55; PULSE 61; RESP 22; TEMP 37; O2SAT 93
[2024-02-21 22:28] LABS: Pneumococcal Antigen Urine NOT DETECTED
[2024-02-22 22:03] LABS: Legionella pneumophila Ag Ur NOT DETECTED
[2024-02-23 22:43] LABS: Mycoplasma IgM Antibody Titer 358 U/mL
== END 2024-02-20 16:21 | disposition hospice, inpatient (51) | DRG 871 ==
LOC: ANHED 18:17 → ANH3MED 18:59
PROVIDERS: Internal Medicine; Physician Assistant; Admitting Provider Internal Medicine; Emergency Provider Emergency Medicine; PCP Internal Medicine; Visit Provider Internal Medicine
DX: A41.9 Sepsis, unspecified organism (principal); J18.9 Pneumonia, unspecified organism; J44.0 Chronic obstructive pulmonary disease with (acute) lower respiratory infection; N17.9 Acute kidney failure, unspecified; I10 Essential (primary) hypertension; D50.9 Iron deficiency anemia, unspecified; E87.5 Hyperkalemia; E78.5 Hyperlipidemia, unspecified; K21.9 Gastro-esophageal reflux disease without esophagitis; N40.0 Benign prostatic hyperplasia without lower urinary tract symptoms; M62.562 Muscle wasting and atrophy, not elsewhere classified, left lower leg; M62.561 Muscle wasting and atrophy, not elsewhere classified, right lower leg; M62.552 Muscle wasting and atrophy, not elsewhere classified, left thigh; M62.551 Muscle wasting and atrophy, not elsewhere classified, right thigh; G47.33 Obstructive sleep apnea (adult) (pediatric); Z20.822 Contact with and (suspected) exposure to COVID-19; Z51.5 Encounter for palliative care; Z79.01 Long term (current) use of anticoagulants; Z87.891 Personal history of nicotine dependence
CPT/HCPCS: 36415; 70450; 70551; 71046; 80048; 80053; 80307; 81001; 82140; 82550; 82607; 83036; 83605; 83735; 84439; 84443; 84480; 84484; 85025; 85610; 85730; 86738; 87040; 87449; 87637; 87899; 92610; 93005; 94640; 96361; 96365; 97161; 97166; 99285; A9270; J0456; J0696; J3475; J7030; J7120